=== PATIENT | male | born 2005 | race Caucasian/White ===

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

== ENCOUNTER 2023-05-03 01:22 | Emergency (ER) | payer OTHER ==
[~2023-05-03] VITALS: Ht 162.6 cm; Wt 70.0 kg
[2023-05-03] MEDS ORDERED: SULFAMETHOX/TRIMETH DS 800-160 MG/TABLET PO ONE (02:30)
[2023-05-03] MEDS ORDERED: PERTUSS(ACELL),DIPH,TET VAC/PF 0.5 ML SYRINGE IM. ONE (02:30)
[2023-05-03] MEDS ORDERED: SULF-261 PO (02:59)
[2023-05-03 03:06] VITALS: BP 129/74; PULSE 74; RESP 17; TEMP 97.3
== END 2023-05-03 05:49 | disposition home or self-care (01) ==
LOC: EMS 01:23
DX: S61.451A Open bite of right hand, initial encounter (principal); F12.90 Cannabis use, unspecified, uncomplicated; W55.01XA Bitten by cat, initial encounter; Y93.89 Activity, other specified; Y92.89 Other specified places as the place of occurrence of the external cause; Y99.8 Other external cause status
CPT/HCPCS: 90471; 90715; 99283

== ENCOUNTER 2024-07-08 23:26 | Emergency (ER) | payer OTHER ==
[~2024-07-08] VITALS: Ht 165.1 cm; Wt 56.8 kg
[~2024-07-08 23:26] MED LIST: SULF-261 PO
[2024-07-08 23:38] VITALS: TEMP 98.7
[2024-07-09] MEDS: METHOCARBAMOL 500 MG TABLET PO ONE (01:04)
[2024-07-09] MEDS: ACETAMINOPHEN/CODEINE 300-30 MG TABLET PO ONE (01:05)
[2024-07-09] MEDS: IBUPROFEN 600 MG TABLET PO ONE (01:05)
[2024-07-09 01:09] VITALS: BP 110/74; PULSE 94; RESP 18; O2SAT 97
== END 2024-07-09 01:10 | disposition home or self-care (01) ==
LOC: EMS 23:27
DX: S13.9XXA Sprain of joints and ligaments of unspecified parts of neck, initial encounter (principal); S33.5XXA Sprain of ligaments of lumbar spine, initial encounter; F12.90 Cannabis use, unspecified, uncomplicated; V43.52XA Car driver injured in collision with other type car in traffic accident, initial encounter; Y93.89 Activity, other specified; Y92.410 Unspecified street and highway as the place of occurrence of the external cause; Y99.8 Other external cause status
CPT/HCPCS: 72040; 72100; 99284; Z7502; Z7610